=== PATIENT | male | born 1985 | race Caucasian/White ===

== ENCOUNTER 2018-02-12 12:56 | Emergency (ER) | payer OTHER ==
[2018-02-12] MEDS ORDERED: ceFAZolin 1,000 MG VIAL IM STA (13:48)
[2018-02-12] MEDS ORDERED: IBUPROFEN 800 MG TAB PO STA (13:50)
[2018-02-12 14:02] VITALS: BP 140/59; PULSE 62; RESP 18; TEMP 98.1
--- NOTE | 2018-02-12 14:07 | ED ---
Extremity Problem HPI - General Chief complaint: Extremity Problem,Nontraumatic Stated complaint: knee swelling Time Seen by Provider: 02/12/18 13:26 Source: patient Mode of arrival: ambulatory Limitations: no limitations - History of Present Illness Initial comments: This is a 32-year-old male with no past medical history who presents today for chief complaint of worsening erythema of skin overlying the right knee. Patient states that Saturday he noticed a bump on the anterior right knee, he stated it looked like a pimple. By Saturday he noticed some surrounding erythema , and mild swelling of the right knee. Saturday the surrounding erythema was increasing and patient admitted to a burning pain over the skin of the right knee and swelling. Patient presented to the local urgent care, where the bump on the right anterior knee was aspirated, he states that a small amount of pus was obtained from the lesion. Patient was started on Bactrim twice daily for cellulitis of the right knee. A line was drawn around the area of erythema, patient was instructed to monitor the area for spreading of erythema and come to ER if it spread. Patient took 1 dose of the Bactrim at 6 PM, and another this morning. However he noticed that the erythema had gone outside of the lines drawn, and he is still experiencing pain so he presented to the emergency department as directed by urgent care. Patient denies pain in the knee joint with knee flexion or extension, previous surgery of the knee, fever, chills, night sweats, or any other symptoms. Pt vital signs stable upon arrival, afebrile. In addition patient denies any recent fever, chills, shortness of breath, chest pain, back pain, abdominal pain, nausea or vomiting, numbness or tingling, dysuria or hematuria, constipation or diarrhea, headaches or visual changes, or any other complaints. - Related Data Home Medications Medication Instructions Recorded Confirmed Ibuprofen [Motrin Ib] 800 mg PO Q6H PRN 02/12/18 02/12/18 Sulfamethoxazole/Trimethoprim 1 tab PO Q12H 02/12/18 02/12/18 [Bactrim DS 800-160 mg] Previous Rx's Medication Instructions Recorded Cephalexin [Keflex] 500 mg PO Q6HR 7 Days #28 cap 02/12/18 Allergies Allergy/AdvReac Type Severity Reaction Status Date / Time No Known Allergies Allergy Verified 08/01/18 13:05 Review of Systems ROS Statement: Those systems with pertinent positive or pertinent negative responses have been documented in the HPI. ROS Other: All systems not noted in ROS Statement are negative. Constitutional: Denies: fever, chills ENT: Denies: ear pain Respiratory: Denies: cough, dyspnea Cardiovascular: Denies: chest pain, palpitations Gastrointestinal: Denies: abdominal pain, nausea, vomiting, diarrhea, constipation Genitourinary: Denies: urgency, dysuria, frequency, hematuria Musculoskeletal: Denies: as per HPI, joint swelling, arthralgia, myalgia Skin: Reports: as per HPI, rash, change in color. Denies: lesions Neurological: Denies: weakness, numbness, paresthesias, abnormal gait Past Medical History Past Medical History: No Reported History History of Any Multi-Drug Resistant Organisms: None Reported Past Surgical History: No Surgical Hx Reported Past Psychological History: No Psychological Hx Reported Smoking Status: Never smoker Past Alcohol Use History: Occasional Past Drug Use History: None Reported General Exam - General Exam Comments Initial Comments: General: The patient is awake and alert, in no distress, and does not appear acutely ill. Eye: Pupils are equal, round and reactive to light, extra-ocular movements are intact. No nystagmus. There is normal conjunctiva bilaterally. No signs of icterus. Ears, nose, mouth and throat: There are moist mucous membranes and no oral lesions. Neck: The neck is supple, there is no tenderness or JVD. Cardiovascular: There is a regular rate and rhythm. No murmur, rub or gallop is appreciated. Respiratory: Lungs are clear to auscultation, respirations are non-labored, breath sounds are equal. No wheezes, stridor, rales, or rhonchi. Musculoskeletal: There is superficial erythema over the anterior right knee, with extension of erythema slightly outside the lines of pen drawing by urgent care. There is a break in the skin with palpable raised lesion, not fluculant, mild surrounding induration. Mild right knee swelling in comparison the left. Full ROM of the knees equally bilaterally with 5 out of 5 strength, no tenderness to ranging with passive or active range of motion no tenderness. Sensation intact of the lower extremities bilaterally. DP pulses equal bilaterally 2+. Capillary < 2 seconds. Neurological: A&O x 3. CN II-XII intact, There are no obvious motor or sensory deficits. Coordination appears grossly intact. Speech is normal. Skin: Skin is warm and dry and no rashes or lesions are noted. Psychiatric: Cooperative, appropriate mood & affect, normal judgment. Limitations: no limitations Course Vital Signs 02/12/18 02/12/18 12:57 13:58 Temperature 98.0 F 98.1 F Pulse Rate 66 62 Respiratory 20 18 Rate Blood Pressure 143/78 140/59 O2 Sat by Pulse 99 97 Oximetry Medical Decision Making - Medical Decision Making 32y male with no PMH presents for erythema of skin overlying right knee with break in epidermis pt states that the area had a pimple like lesion that began Saturday and it was drained at urgent care yesterday. Upon physical examination there appeared to be superficial erythema without significant soft tissue swelling over the right anterior knee, there is a break in the epidermis. Pt is able to fully passive and active range the right knee without pain. He states the pain feels as though its only involving the skin. Pt is afebrile. At this time I have low suspicion for a septic joint, this appears to be a cellulitis from break in skin. I feel abx given at the urgent care are not therapeutic yet given pt only had 2 doses of Bactrim PO. I discussed the case in detail with Dr. Aragon, at this time. We feel patient would benefit from one-time IM dose of cefazolin andadding Keflex to PO antibiotic regimen for better strep and staph coverage. Patient may take ibuprofen 800 as needed for pain management. At this time the patient is stable for discharge, he was educated on the signs and symptoms of worsening infection instructed to return to emergency department immediately if these arise. Patient discharged in stable condition afebrile. Disposition Clinical Impression: Cellulitis of right knee Disposition: HOME SELF-CARE Condition: Good Instructions: Cellulitis (ED) Additional Instructions: Please use medication as discussed, including continuation of previous prescribed bactrim. Please follow-up with family doctor in the next 2 days. Please return to emergency room if the symptoms increase or worsen or for any other concerns as discussed. Prescriptions: Cephalexin [Keflex] 500 mg PO Q6HR 7 Days #28 cap Is patient prescribed a controlled substance at d/c from ED?: No Referrals: Renato Diaz MD [Primary Care Provider] - 1-2 days Time of Disposition: 14:08
== END 2018-02-12 14:37 | disposition home or self-care (01) ==
LOC: EC 12:56
DX: L03.115 Cellulitis of right lower limb (principal)
CPT/HCPCS: 99283; 96372; J0690

== ENCOUNTER 2018-02-24 02:04 | Emergency (ER) | payer OTHER ==
[2018-02-24] MEDS ORDERED: SODIUM CHLORIDE 0.9% 1,000 ML IV ONE (02:32)
--- NOTE | 2018-02-24 02:37 | ED ---
General Adult HPI - General Source: patient Mode of arrival: ambulatory Limitations: no limitations <Rin Venegas - Last Filed: 02/24/18 04:39> <Alma Rosa Bray - Last Filed: 02/24/18 05:36> - General Chief complaint: Recheck/Abnormal Lab/Rx Stated complaint: Fever,rash Time Seen by Provider: 02/24/18 02:20 - History of Present Illness Initial comments: 32-year-old male patient presents to the emergency department today for evaluation of fever and rash. Patient states that he was treated approximately 12 days ago for a superficial skin infection of the right knee. Patient states he was started on Bactrim, seem to have worsening symptoms so he sought treatment again and was started on Keflex in addition to the Bactrim. Patient states that he took approximate 5 days of the Keflex before his physician told him to stop and then extended the dosing of Bactrim to 14 days. Patient states he has 2 days of Bactrim left. Patient states that yesterday he started to develop a rash and had low-grade fevers. Patient states he feels unwell. Patient states he also began to have diarrhea tonight. States the diarrhea is watery and he is having generalized abdominal cramping. Patient denies any cough, congestion, sore throat, headache, or joint pain. States that at this time the infection to his right knee appears to be improved. Denies any recent travel or sick contacts. Patient denies any recent rash, shortness breath, chest pain, back pain, numbness, tingling, dizziness, weakness, hematuria, dysuria, urinary urgency, urinary frequency, headache, visual changes, or any other complaints. (Rin Venegas) - Related Data Home Medications Medication Instructions Recorded Confirmed Ibuprofen [Motrin Ib] 800 mg PO Q6H PRN 02/12/18 02/12/18 Sulfamethoxazole/Trimethoprim 1 tab PO Q12H 02/12/18 02/12/18 [Bactrim DS 800-160 mg] Previous Rx's Medication Instructions Recorded Cephalexin [Keflex] 500 mg PO Q6HR 7 Days #28 cap 02/12/18 Allergies Allergy/AdvReac Type Severity Reaction Status Date / Time No Known Allergies Allergy Verified 02/24/18 02:11 Review of Systems ROS Other: All systems not noted in ROS Statement are negative. <TheoRin M - Last Filed: 02/24/18 04:39> ROS Other: All systems not noted in ROS Statement are negative. <Alma Rosa Bray Telma - Last Filed: 02/24/18 05:36> ROS Statement: Those systems with pertinent positive or pertinent negative responses have been documented in the HPI. Past Medical History Past Medical History: No Reported History Additional Past Medical History / Comment(s): MRSA right knee History of Any Multi-Drug Resistant Organisms: MRSA Date of last positivie culture/infection: 02/12/18 MDRO Source:: skin/right knee Past Surgical History: No Surgical Hx Reported Past Psychological History: No Psychological Hx Reported Smoking Status: Never smoker Past Alcohol Use History: Occasional Past Drug Use History: None Reported <Rin Venegas Ilda - Last Filed: 02/24/18 04:39> General Exam Limitations: no limitations General appearance: alert, in no apparent distress, other (This is a well- developed, well-nourished adult male patient in no acute distress. Vital signs upon presentation are temperature 99.4F, pulse 97, respirations 18, blood pressure 126/80, pulse ox 95% on room air.) Eye exam: Present: normal appearance, PERRL, EOMI. Absent: scleral icterus, conjunctival injection, periorbital swelling ENT exam: Present: normal exam, normal oropharynx, mucous membranes moist Respiratory exam: Present: normal lung sounds bilaterally. Absent: respiratory distress, wheezes, rales, rhonchi, stridor Cardiovascular Exam: Present: regular rate, normal rhythm, normal heart sounds. Absent: systolic murmur, diastolic murmur, rubs, gallop, clicks GI/Abdominal exam: Present: soft, normal bowel sounds. Absent: distended, tenderness, guarding, rebound, rigid Neurological exam: Present: alert, oriented X3, CN II-XII intact Psychiatric exam: Present: normal affect, normal mood Skin exam: Present: warm, dry, intact, normal color, rash (Generalized erythematous rash, small lesions, non petechial, nonvesicular. No pustules or drainage. ) <Rin Venegas M - Last Filed: 02/24/18 04:39> Vital Signs 02/24/18 02:07 Temperature 99.4 F Pulse Rate 97 Respiratory 18 Rate Blood Pressure 126/80 O2 Sat by Pulse 95 Oximetry Medical Decision Making - Lab Data Result diagrams: 02/24/18 02:50 02/24/18 02:50 <Rin Venegas - Last Filed: 02/24/18 04:39> - Lab Data Result diagrams: 02/24/18 02:50 02/24/18 02:50 <Alma Rosa Bray - Last Filed: 02/24/18 05:36> - Medical Decision Making Patient care was signed out to me by Renu Venegas [employer] patient has been not Bactrim for 12 days for a lower extremity skin infection. He has developed some diarrhea and a rash. Rash is likely secondary to a drug eruption. There is concern that diarrhea may a bloody, stool occult blood was negative. C. diff was negative. Results were discussed with the patient who is eager for discharge home. Patient was advised to discontinue the use of Bactrim and follow up with his PCP for reevaluation. All questions pertaining care were answered the best my ability patient discharged home in stable condition. (Alma Rosa Bray) - Lab Data Lab Results 02/24/18 02/24/18 02/24/18 Range/Units 02:50 02:50 02:50 WBC 8.5 (3.8-10.6) k/uL RBC 4.80 (4.30-5.90) m/uL Hgb 14.7 (13.0-17.5) gm/dL Hct 42.4 (39.0-53.0) % MCV 88.3 (80.0-100.0) fL MCH 30.6 (25.0-35.0) pg MCHC 34.6 (31.0-37.0) g/dL RDW 12.8 (11.5-15.5) % Plt Count 196 (150-450) k/uL Neutrophils % 81 % Lymphocytes % 11 % Monocytes % 4 % Eosinophils % 2 % Basophils % 0 % Neutrophils # 6.9 (1.3-7.7) k/uL Lymphocytes # 1.0 (1.0-4.8) k/uL Monocytes # 0.4 (0-1.0) k/uL Eosinophils # 0.1 (0-0.7) k/uL Basophils # 0.0 (0-0.2) k/uL Sodium 138 (137-145) mmol/L Potassium 4.9 (3.5-5.1) mmol/L Chloride 104 (98-107) mmol/L Carbon Dioxide 23 (22-30) mmol/L Anion Gap 11 mmol/L BUN 14 (9-20) mg/dL Creatinine 1.00 (0.66-1.25) mg/dL Est GFR (CKD-EPI)AfAm >90 (>60 ml/min/1.73 sqM) Est GFR (CKD-EPI)NonAf >90 (>60 ml/min/1.73 sqM) Glucose 107 H (74-99) mg/dL Plasma Lactic Acid Trevor 1.8 (0.7-2.0) mmol/L Calcium 9.6 (8.4-10.2) mg/dL Total Bilirubin 0.4 (0.2-1.3) mg/dL AST 31 (17-59) U/L ALT 61 (21-72) U/L Alkaline Phosphatase 80 (38-126) U/L Total Protein 7.6 (6.3-8.2) g/dL Albumin 4.8 (3.5-5.0) g/dL Urine Color Urine Appearance (Clear) Urine pH (5.0-8.0) Ur Specific Atkinson (1.001-1.035) Urine Protein (Negative) Urine Glucose (UA) (Negative) Urine Ketones (Negative) Urine Blood (Negative) Urine Nitrite (Negative) Urine Bilirubin (Negative) Urine Urobilinogen (<2.0) mg/dL Ur Leukocyte Esterase (Negative) Stool Occult Blood (Negative) C. difficile (EIA) Intrp (Negative) 02/24/18 02/24/18 02/24/18 Range/Units 04:00 04:00 04:00 WBC (3.8-10.6) k/uL RBC (4.30-5.90) m/uL Hgb (13.0-17.5) gm/dL Hct (39.0-53.0) % MCV (80.0-100.0) fL MCH (25.0-35.0) pg MCHC (31.0-37.0) g/dL RDW (11.5-15.5) % Plt Count (150-450) k/uL Neutrophils % % Lymphocytes % % Monocytes % % Eosinophils % % Basophils % % Neutrophils # (1.3-7.7) k/uL Lymphocytes # (1.0-4.8) k/uL Monocytes # (0-1.0) k/uL Eosinophils # (0-0.7) k/uL Basophils # (0-0.2) k/uL Sodium (137-145) mmol/L Potassium (3.5-5.1) mmol/L Chloride (98-107) mmol/L Carbon Dioxide (22-30) mmol/L Anion Gap mmol/L BUN (9-20) mg/dL Creatinine (0.66-1.25) mg/dL Est GFR (CKD-EPI)AfAm (>60 ml/min/1.73 sqM) Est GFR (CKD-EPI)NonAf (>60 ml/min/1.73 sqM) Glucose (74-99) mg/dL Plasma Lactic Acid Trevor (0.7-2.0) mmol/L Calcium (8.4-10.2) mg/dL Total Bilirubin (0.2-1.3) mg/dL AST (17-59) U/L ALT (21-72) U/L Alkaline Phosphatase (38-126) U/L Total Protein (6.3-8.2) g/dL Albumin (3.5-5.0) g/dL Urine Color Yellow Urine Appearance Clear (Clear) Urine pH 5.0 (5.0-8.0) Ur Specific Atkinson 1.015 (1.001-1.035) Urine Protein Negative (Negative) Urine Glucose (UA) Negative (Negative) Urine Ketones Negative (Negative) Urine Blood Negative (Negative) Urine Nitrite Negative (Negative) Urine Bilirubin Negative (Negative) Urine Urobilinogen <2.0 (<2.0) mg/dL Ur Leukocyte Esterase Negative (Negative) Stool Occult Blood Negative (Negative) C. difficile (EIA) Intrp Negative (Negative) Disposition Is patient prescribed a controlled substance at d/c from ED?: No <Rin Venegas - Last Filed: 02/24/18 04:39> Is patient prescribed a controlled substance at d/c from ED?: No Time of Disposition: 05:35 <Alma Rosa Bray - Last Filed: 02/24/18 05:36> Clinical Impression: Drug rash, Diarrhea Disposition: HOME SELF-CARE Condition: Good Instructions: Acute Diarrhea (ED), Acute Rash (ED) Additional Instructions: Increase fluids. Stop taking the Bactrim. Follow-up with your primary care physician for recheck in 1-2 days. Return here immediately for any new, worsening, or concerning symptoms. Referrals: Renato Diaz MD [Primary Care Provider] - 1-2 days
[2018-02-24 03:15] LABS: Basophils % (A) 0 %; Eosinophils # (A) 0.1 k/uL (0-0.7); Eosinophils % (A) 2 %; HCT 42.4 % (39.0-53.0); HGB 14.7 gm/dL (13.0-17.5); Lymphocytes % (A) 11 %; MCH 30.6 pg (25.0-35.0); MCHC 34.6 g/dL (31.0-37.0); MCV 88.3 fL (80.0-100.0); Mean Platelet Volume 7.1; Monocytes # (A) 0.4 k/uL (0-1.0); Monocytes % (A) 4 %; Neutrophils # (A) 6.9 k/uL (1.3-7.7); Neutrophils % (A) 81 %; Platelet Count 196 k/uL (150-450); RDW 12.8 % (11.5-15.5); WBC 8.5 k/uL (3.8-10.6)
[2018-02-24 03:31] LABS: ALT 61 U/L (21-72); AST 31 U/L (17-59); Albumin 4.8 g/dL (3.5-5.0); Alkaline Phosphatase 80 U/L (38-126); Anion Gap 11 mmol/L; Blood Urea Nitrogen 14 mg/dL (9-20); Calcium 9.6 mg/dL (8.4-10.2); Carbon Dioxide 23 mmol/L (22-30); Chloride 104 mmol/L (98-107); Glucose 107 mg/dL (74-99); Potassium 4.9 mmol/L (3.5-5.1); Sodium 138 mmol/L (137-145); Total Bilirubin 0.4 mg/dL (0.2-1.3); Total Protein 7.6 g/dL (6.3-8.2)
[2018-02-24 04:31] LABS: Appearance,Urine Clear (Clear); Bilirubin,Urine Negative (Negative); Blood,Urine Negative (Negative); Color,Urine Yellow; Glucose,Urine (UA) Negative (Negative); Ketones,Urine Negative (Negative); Leukocyte Esterase,Urine Negative (Negative); Nitrite,Urine Negative (Negative); Protein,Urine Negative (Negative); Specific Gravity,Urine 1.015 (1.001-1.035); Urobilinogen,Urine <2.0 mg/dL (<2.0)
[2018-02-24 06:09] VITALS: BP 123/58; PULSE 72; RESP 20; TEMP 98.7
== END 2018-02-24 06:09 | disposition home or self-care (01) ==
LOC: EC 02:04
DX: L27.0 Generalized skin eruption due to drugs and medicaments taken internally (principal); R19.7 Diarrhea, unspecified; R10.84 Generalized abdominal pain; R50.9 Fever, unspecified; T37.0X5A Adverse effect of sulfonamides, initial encounter; L08.9 Local infection of the skin and subcutaneous tissue, unspecified; Z86.14 Personal history of Methicillin resistant Staphylococcus aureus infection
CPT/HCPCS: 36415; 80053; 81003; 82272; 83605; 85025; 87040; 87324; 96360; 96361; 99283

== ENCOUNTER 2018-12-10 15:17 | Emergency (ER) | payer OTHER ==
[2018-12-10 15:33] VITALS: BP 143/64; PULSE 66; RESP 18; TEMP 98
[2018-12-10 16:23] LABS: Basophils % (A) 1 %; Eosinophils # (A) 0.1 k/uL (0-0.7); Eosinophils % (A) 2 %; HCT 44.9 % (39.0-53.0); Lymphocytes # (A) 1.1 k/uL (1.0-4.8); Lymphocytes % (A) 22 %; MCH 30.1 pg (25.0-35.0); MCHC 33.5 g/dL (31.0-37.0); MCV 89.9 fL (80.0-100.0); Monocytes # (A) 0.3 k/uL (0-1.0); Monocytes % (A) 6 %; Neutrophils # (A) 3.6 k/uL (1.3-7.7); Neutrophils % (A) 68 %; Platelet Count 197 k/uL (150-450); RDW 12.9 % (11.5-15.5); WBC 5.2 k/uL (3.8-10.6)
[2018-12-10 16:32] LABS: Anion Gap 11 mmol/L; Blood Urea Nitrogen 14 mg/dL (9-20); Calcium 10.4 mg/dL (8.4-10.2); Carbon Dioxide 28 mmol/L (22-30); Chloride 103 mmol/L (98-107); Glucose 103 mg/dL (74-99); Potassium 4.1 mmol/L (3.5-5.1); Sodium 142 mmol/L (137-145)
[2018-12-10] MEDS ORDERED: MECLIZINE 25 MG TAB PO STA (16:56)
--- NOTE | 2018-12-10 17:00 | ED ---
General Adult HPI - General Chief complaint: Dizziness Stated complaint: Dizzy Time Seen by Provider: 12/10/18 15:30 Source: patient, RN notes reviewed Mode of arrival: ambulatory Limitations: no limitations - History of Present Illness Initial comments: This is a 32-year-old male presents emergency Department complaining of dizziness. Patient states it started about 1:00 today and anytime he moves his head the dizziness gets worse per patient states she's also little nauseated with the dizziness. Patient also has noted that if he stays still and looks at one point the dizziness is not as bad per patient denies headache patient denies any numbness weakness. Patient denies any visual disturbance. Patient denies any chest pain palpitations difficulty breathing shortest breath per patient denies any recent fever chills or cough per patient states he has had 2 previous episodes the last few weeks of very similar symptoms but both times they resolved. Patient denies any tinnitus or any decreased or change in hearing. Patient denies any recent upper respiratory infection. Patient denies any vomiting or diarrhea. Patient denies any abdominal pain. - Related Data Previous Rx's Medication Instructions Recorded Meclizine [Antivert] 25 mg PO TID #20 tab 12/10/18 Allergies Allergy/AdvReac Type Severity Reaction Status Date / Time No Known Allergies Allergy Verified 12/10/18 17:23 Review of Systems ROS Statement: Those systems with pertinent positive or pertinent negative responses have been documented in the HPI. ROS Other: All systems not noted in ROS Statement are negative. Past Medical History Past Medical History: No Reported History Additional Past Medical History / Comment(s): MRSA right knee History of Any Multi-Drug Resistant Organisms: MRSA Date of last positivie culture/infection: 02/12/18 MDRO Source:: skin/right knee Past Surgical History: No Surgical Hx Reported Past Psychological History: No Psychological Hx Reported Smoking Status: Never smoker Past Alcohol Use History: Occasional Past Drug Use History: None Reported General Exam - General Exam Comments Initial Comments: GENERAL: Patient is well-developed and well-nourished. Patient is nontoxic and well- hydrated and is in mild distress. ENT: Neck is soft and supple. No significant lymphadenopathy is noted. Oropharynx is clear. Moist mucous membranes. Neck has full range of motion without eliciting any pain. EYES: The sclera were anicteric and conjunctiva were pink and moist. Extraocular movements were intact and pupils were equal round and reactive to light. Eyelids were unremarkable. PULMONARY: Unlabored respirations. Good breath sounds bilaterally. No audible rales rhonchi or wheezing was noted. CARDIOVASCULAR: There is a regular rate and rhythm without any murmurs gallops or rubs. ABDOMEN: Soft and nontender with normal bowel sounds. No palpable organomegaly was noted. There is no palpable pulsatile mass. SKIN: Skin is clear with no lesions or rashes and otherwise unremarkable. NEUROLOGIC: Patient is alert and oriented x3. Cranial nerves II through XII are grossly intact. Motor and sensory are also intact. Normal speech, volume and content. Symmetrical smile. Cerebellar exam grossly intact. MUSCULOSKELETAL: Normal extremities with adequate strength and full range of motion. LYMPHATICS: No significant lymphadenopathy is noted PSYCHIATRIC: Normal psychiatric evaluation. Limitations: no limitations Course Vital Signs 12/10/18 15:30 Temperature 98.0 F Pulse Rate 66 Respiratory 18 Rate Blood Pressure 143/64 O2 Sat by Pulse 99 Oximetry Medical Decision Making - Medical Decision Making EKG shows sinus tachycardia at 106 bpm SD interval 240 QRS is 80 QT interval 350 QTC is 464 per patient's EKG shows no ST segment elevation or depression. Computed tomography scan showed no acute abnormality. Patient got Antivert while in the emergency department did feel slightly better. - Lab Data Result diagrams: 12/10/18 Unknown 12/10/18 Unknown Lab Results 12/10/18 12/10/18 Range/Units Unknown Unknown WBC 5.2 (3.8-10.6) k/uL RBC 5.00 (4.30-5.90) m/uL Hgb 15.0 (13.0-17.5) gm/dL Hct 44.9 (39.0-53.0) % MCV 89.9 (80.0-100.0) fL MCH 30.1 (25.0-35.0) pg MCHC 33.5 (31.0-37.0) g/dL RDW 12.9 (11.5-15.5) % Plt Count 197 (150-450) k/uL Neutrophils % 68 % Lymphocytes % 22 % Monocytes % 6 % Eosinophils % 2 % Basophils % 1 % Neutrophils # 3.6 (1.3-7.7) k/uL Lymphocytes # 1.1 (1.0-4.8) k/uL Monocytes # 0.3 (0-1.0) k/uL Eosinophils # 0.1 (0-0.7) k/uL Basophils # 0.0 (0-0.2) k/uL Sodium 142 (137-145) mmol/L Potassium 4.1 (3.5-5.1) mmol/L Chloride 103 (98-107) mmol/L Carbon Dioxide 28 (22-30) mmol/L Anion Gap 11 mmol/L BUN 14 (9-20) mg/dL Creatinine 0.90 (0.66-1.25) mg/dL Est GFR (CKD-EPI)AfAm >90 (>60 ml/min/1.73 sqM) Est GFR (CKD-EPI)NonAf >90 (>60 ml/min/1.73 sqM) Glucose 103 H (74-99) mg/dL Calcium 10.4 H (8.4-10.2) mg/dL Disposition Clinical Impression: Vertigo Disposition: HOME SELF-CARE Condition: Good Instructions (If sedation given, give patient instructions): Vertigo (ED) Prescriptions: Meclizine [Antivert] 25 mg PO TID #20 tab Is patient prescribed a controlled substance at d/c from ED?: No Referrals: Renato Diaz MD [Primary Care Provider] - 1-2 days Time of Disposition: 18:34
--- NOTE | 2018-12-10 17:57 | CT ---
EXAMINATION: CT brain wo con DATE AND TIME: 12/10/2018 5:36 PM CLINICAL INDICATION: PHH; Pain TECHNIQUE: Standard departmental protocol.; 1090.4; COMPARISON: None. FINDINGS: The calvarium is intact. There is no intracranial hemorrhage. There is no intracranial mass or mass effect. No definite new intra-axial or extra-axial attenuation defect. The paranasal sinuses, middle ear cavities, and mastoid sinus air cells are clear. The orbits are unremarkable. IMPRESSION: NO ACUTE PROCESS.
== END 2018-12-10 19:12 | disposition home or self-care (01) ==
LOC: EC 15:17
DX: R42 Dizziness and giddiness (principal); R11.0 Nausea; R00.0 Tachycardia, unspecified; Z86.14 Personal history of Methicillin resistant Staphylococcus aureus infection
CPT/HCPCS: 36415; 70450; 80048; 85025; 93005; 99284

== ENCOUNTER → 2019-08-14 | Outpatient (CLI) | payer OTHER ==
--- NOTE | 2019-08-16 21:56 | CT ---
EXAMINATION TYPE: CT soft tissue neck w con DATE OF EXAM: 08/14/2019 COMPARISON: None HISTORY: 33-year-old male pain in throat X 5 months TECHNIQUE: Contiguous axial scanning of the soft tissues of the neck performed with IV Contrast, noreen ent injected with 100 mL of Isovue 300. Coronal/sagittal reconstructions performed. CT DLP: 543 mGycm Automated exposure control for dose reduction was used. FINDINGS: Visualized intracranial structures, orbits and globes, paranasal sinuses, and mastoid air cells appea r clear. Nasopharynx appears clear. Mild bilateral tubal tonsillar hypertrophy in the upper oropharynx. Oropharynx otherwise clear. The epiglottis and prevertebral soft tissues appear within normal limits. Glottic and subglottic structures as well as the tracheal column and visualized upper lungs are clear . Thyroid gland and submandibular glands are satisfactory. Parotid glands are mildly atrophic. Borderline sized upper cervical lymph nodes on both sides of the neck measuring up to 1.3 cm short ax is on the left and 1.1 cm short axis on the right. Additional scattered lymph nodes are present on norma th sides of the neck. Bones: No osseous destructive process. IMPRESSION: 1. BORDERLINE SIZED LYMPH NODES ON BOTH SIDES OF THE UPPER NECK MEASURING UP TO 1.3 CM SHORT AXIS, LI NGOZI REACTIVE/POST INFLAMMATORY. THESE CAN BE FOLLOWED CLINICALLY. IF ANY ENLARGEMENT IS NOTED, THE A MADISON CAN BE REIMAGED WITH ULTRASOUND. 2. INCIDENTAL MILD PAROTID GLAND ATROPHY.
== END | disposition home or self-care (01) ==
LOC: RADCTMAIN 16:43
PROVIDERS: ATTEND Otolaryngology
DX: J02.9 Acute pharyngitis, unspecified (principal)
CPT/HCPCS: 70491; Q9967

== ENCOUNTER 2020-09-26 02:21 | Observation (INO) | payer OTHER ==
--- NOTE | 2020-09-26 02:58 | ED ---
Chest Pain HPI - General Chief Complaint: Chest Pain Stated Complaint: Chest pain Time Seen by Provider: 09/26/20 02:42 Source: patient Mode of arrival: wheelchair Limitations: no limitations - History of Present Illness Initial Comments: This patient is a 34-year-old man who presents to be evaluated for chest pain. The patient states that he woke up and it felt like he was having heartburn to just to the left of his sternum in the mid chest. He states that he tried drinking some water but it didn't change the pain. He states that he didn't notice any acid taste in his mouth and therefore he felt he should be evaluated here. He was not having any radiation of the pain. He has not noted worsening or relieving factors. No anginal symptoms. MD Complaint: chest pain Onset/Timin -: hour(s) Onset: awoke with symptoms Pain Location: left chest Pain Radiation: none Severity: mild Quality: other (Like heartburn) Consistency: constant Improves With: nothing Worsens With: nothing Treatments Prior to Arrival: none - Related Data Home Medications Medication Instructions Recorded Confirmed Aspirin/Sod Bicarb/Citric Acid 1 tab PO DAILY PRN 09/26/20 09/26/20 [Juanita-Dover Original Tab Eff] Previous Rx's Medication Instructions Recorded Aspirin 81 mg PO DAILY #30 chew 09/27/20 Atorvastatin Calcium [Lipitor] 40 mg PO HS #90 tablet 09/27/20 Clopidogrel [Plavix] 75 mg PO DAILY #30 tab 09/27/20 Metoprolol Tartrate [Lopressor] 12.5 mg PO DAILY #30 tab 09/27/20 Nitroglycerin Sl Tabs [Nitrostat] 0.4 mg SUBLINGUAL Q5M PRN #20 tab 09/27/20 Allergies Allergy/AdvReac Type Severity Reaction Status Date / Time No Known Allergies Allergy Verified 09/26/20 06:57 Review of Systems ROS Statement: Those systems with pertinent positive or pertinent negative responses have been documented in the HPI. ROS Other: All systems not noted in ROS Statement are negative. Constitutional: Denies: fever Respiratory: Denies: cough, dyspnea Cardiovascular: Reports: as per HPI, chest pain. Denies: palpitations, orthopnea, edema, syncope Gastrointestinal: Denies: abdominal pain, nausea, vomiting Genitourinary: Denies: dysuria Musculoskeletal: Denies: back pain Skin: Denies: rash Neurological: Denies: headache, weakness, numbness EKG Findings - EKG Results: EKG: interpreted by RUSSEL GORDON, sinus rhythm (Rate 61 bpm), normal axis, normal QRS, normal ST/T, no acute changes Past Medical History Past Medical History: No Reported History Additional Past Medical History / Comment(s): MRSA right knee History of Any Multi-Drug Resistant Organisms: MRSA Date of last positivie culture/infection: 02/12/18 MDRO Source:: skin/right knee Past Surgical History: No Surgical Hx Reported Past Psychological History: No Psychological Hx Reported Smoking Status: Never smoker Past Alcohol Use History: Occasional Past Drug Use History: None Reported - Past Family History Father Family Medical History: No Reported History Additional Family Medical History / Comment(s): Father is healthy Mother Family Medical History: No Reported History Additional Family Medical History / Comment(s): Mother is healthy. Pt's maternal grandfather of a [place] at the age of 40 yrs. General Exam Limitations: no limitations General appearance: alert, in no apparent distress Head exam: Present: atraumatic, normocephalic Eye exam: Present: normal appearance. Absent: scleral icterus, conjunctival injection ENT exam: Present: normal oropharynx Neck exam: Present: normal inspection Respiratory exam: Present: normal lung sounds bilaterally. Absent: respiratory distress, wheezes, rales, rhonchi, stridor, chest wall tenderness, accessory muscle use Cardiovascular Exam: Present: regular rate, normal rhythm, normal heart sounds. Absent: systolic murmur, diastolic murmur, rubs, gallop GI/Abdominal exam: Present: soft. Absent: distended, tenderness, guarding, rebound, rigid, mass Extremities exam: Present: normal inspection, normal capillary refill. Absent: pedal edema, calf tenderness Back exam: Present: normal inspection. Absent: CVA tenderness (R), CVA tenderness (L) Neurological exam: Present: alert Skin exam: Present: warm, dry, intact, normal color. Absent: rash Course Vital Signs 09/26/20 09/26/20 09/26/20 02:24 06:00 07:22 Temperature 97.8 F 98.1 F Pulse Rate 67 58 L 58 L Respiratory 18 18 16 Rate Blood Pressure 154/88 126/82 129/81 O2 Sat by Pulse 100 98 100 Oximetry 09/26/20 09/26/20 09/26/20 10:38 11:14 11:22 Temperature 98.3 F 98.3 F Pulse Rate 67 71 82 Respiratory 16 16 18 Rate Blood Pressure 137/86 162/89 162/89 O2 Sat by Pulse 100 100 100 Oximetry - Reevaluation(s) Reevaluation #1: 09/26/20 07:[address] Horta. Cardiology will see the patient first thing this morning Chest Pain [facility] Patient is a 34-year-old man resenting with episode of chest pain, the symptoms have improved with treatment here. Patient does have minimal elevation of troponin. His ECG is not frankly ischemic, and the case discussed with cardiology and they will see the patient. Disposition Clinical Impression: Acute coronary syndrome Disposition: ADMITTED IP TO THIS HOSP Condition: Fair
[2020-09-26] MEDS ORDERED: MAG HYDROX/AL HYDROX/SIMETH 30 ML, HYOSCYAMINE ELIXIR 10 ML, LIDOCAINE VISCOUS 2% 10 ML PO STA ×3 (03:05)
--- NOTE | 2020-09-26 03:07 | XR ---
EXAM: XR Chest, 2 Views CLINICAL HISTORY: Chest pain. TECHNIQUE: Frontal and lateral views of the chest. COMPARISON: No previous studies. FINDINGS: Lungs: The lungs are well aerated. No consolidative change or pleural effusion. Pleural space: See above. Heart: Cardiomediastinal silhouette is unremarkable. Mediastinum: See above. Bones/joints: Osteopenia. IMPRESSION: 1. Osteopenia. 2. No active disease.
[2020-09-26 03:08] LABS: Partial Thromboplastin Time 24.3 sec (22.0-30.0); Prothrombin Time 10.4 sec (9.0-12.0)
[2020-09-26 03:12] LABS: ALT 72 U/L (4-49); AST 56 U/L (17-59); African American GFR (CKD) >90 (>60 ml/min/1.73 sqM); Albumin 4.8 g/dL (3.5-5.0); Alkaline Phosphatase 94 U/L (38-126); Anion Gap 6 mmol/L; Blood Urea Nitrogen 19 mg/dL (9-20); Calcium 9.3 mg/dL (8.4-10.2); Carbon Dioxide 29 mmol/L (22-30); Chloride 103 mmol/L (98-107); Glucose 106 mg/dL (74-99); Magnesium 2.1 mg/dL (1.6-2.3); Non-African American GFR(CKD) >90 (>60 ml/min/1.73 sqM); Potassium 4.5 mmol/L (3.5-5.1); Sodium 138 mmol/L (137-145); Total Bilirubin 0.6 mg/dL (0.2-1.3); Total Protein 7.7 g/dL (6.3-8.2)
[2020-09-26 03:28] LABS: HCT 43.7 % (39.0-53.0); MCHC 34.3 g/dL (31.0-37.0); MCV 90.6 fL (80.0-100.0); Mean Platelet Volume 8.5; Platelet Count 171 k/uL (150-450); RBC 4.82 m/uL (4.30-5.90); RDW 12.6 % (11.5-15.5); WBC 3.8 k/uL (3.8-10.6)
[2020-09-26] MEDS ORDERED: ASPIRIN 81 MG PO STA (03:37)
[2020-09-26] MEDS ORDERED: NITROGLYCERIN SL TABS 0.4 MG TAB SUBLINGUAL STA (03:37)
[2020-09-26] MEDS ORDERED: HEPARIN SODIUM,PORCINE 5,000 UNIT/ML 1 ML VIAL IV PRN (04:04)
[2020-09-26] MEDS ORDERED: HEPARIN SODIUM,PORCINE 5,000 UNIT/ML 1 ML VIAL IV ONE (04:04)
[2020-09-26] MEDS ORDERED: MORPHINE SULFATE 4 MG/ML SYRINGE IV STA (04:05)
[2020-09-26] MEDS ORDERED: NITROGLYCERIN SL TABS 0.4 MG TAB SUBLINGUAL PRN ×2 (04:06→11:04)
[2020-09-26] MEDS ORDERED: HEPARIN SOD,PORK IN 0.45% NACL 25,000 UNIT in 0.45% NACL 1 250ML.BAG IV SCH (04:15)
[2020-09-26 04:32] LABS: Band Neutrophils % 3 %; Basophils # (M) 0.08 k/uL (0-0.2); Eosinophils # (M) 0.04 k/uL (0-0.7); Lymphocytes # (M) 2.05 k/uL (1.0-4.8); Monocytes # (M) 0.72 k/uL (0-1.0); Neutrophils % (M) 21 %; Nucleated Red Blood Cells 0 /100 WBC (0-0); Total Cells Counted 100
[2020-09-26] MEDS ORDERED: ALPRAZolam 0.25 MG TAB PO PRN ×2 (08:37→11:04)
[2020-09-26] MEDS: FAMOTIDINE 20 MG/2 ML VIAL IV SCH ×2 (09:20→20:05)
--- NOTE | 2020-09-26 09:59 | P.HPIM ---
History of Present Illness This is a pleasant 54 years old male with no significant past medical history. Was admitted yesterday for heartburn and chest pain, patient states he workup with chest pain radiating to the left shoulder, which woke him up at 1 am , felt like pressure or burning as per pt, pt itself was not that sever it was only 3- 4/10 in severity but the location of pain in left upper chest radiating to left shoulder and the fact it woke him up in the middle of night which made pt gets worried and decide to come to ED pt denies present, no abdominal or urinary complaints. No headache or nausea vomiting. No fever. Patient states he never smokes, no illicit drugs and he drinks alcohol occasionally However he states that his current father from his mother's side was not at age of 40 from heart attack Vitals are stable except for mild bradycardia with heart rate of 58. Left showing unremarkable CBC, INR, BMP and liver enzymes. Troponin is elevated 0.04 and 0.22. Coronary varus not detected EKG: Normal sinus rhythm at [address]-T changes and QTC 440. Chest x-ray: No acute process. In the emergency room patient was started on heparin drip and aspirin cartilage team were consulted Review of Systems CONSTITUTIONAL: No fever, no malaise, no fatigue. HEENT: No recent visual problems or hearing problems. Denied any sore throat. CARDIOVASCULAR: No orthopnea, PND, no palpitations, no syncope. PULMONARY: No shortness of breath, no cough, no hemoptysis. GASTROINTESTINAL: No diarrhea, no nausea, no vomiting, no abdominal pain. Normoactive bowel sounds. NEUROLOGICAL: No headaches, no weakness, no numbness. HEMATOLOGICAL: Denies any bleeding or petechiae. GENITOURINARY: Denies any burning micturition, frequency, or urgency. MUSCULOSKELETAL/RHEUMATOLOGICAL: Denies any joint pain, swelling, or any muscle pain. ENDOCRINE: Denies any polyuria or polydipsia. Past Medical History Past Medical History: No Reported History Additional Past Medical History / Comment(s): MRSA right knee History of Any Multi-Drug Resistant Organisms: MRSA Date of last positivie culture/infection: 02/12/18 MDRO Source:: skin/right knee Past Surgical History: No Surgical Hx Reported Past Psychological History: No Psychological Hx Reported Smoking Status: Never smoker Past Alcohol Use History: Occasional Past Drug Use History: None Reported Medications and Allergies Home Medications Medication Instructions Recorded Confirmed Type Aspirin/Sod Bicarb/Citric Acid 1 tab PO DAILY PRN 09/26/20 09/26/20 History [Timoteo Original Tab Eff] Allergies Allergy/AdvReac Type Severity Reaction Status Date / Time No Known Allergies Allergy Verified 09/26/20 06:57 Physical Exam Vitals: Vital Signs Temp Pulse Resp BP Pulse Ox 09/26/20 07:22 98.1 F 58 L 16 129/81 100 09/26/20 06:00 58 L 18 126/82 98 09/26/20 02:24 97.8 F 67 18 154/88 100 Intake and Output 09/25/20 09/26/20 09/26/20 22:59 06:59 14:59 Other: Weight 90.718 kg GENERAL: The patient is alert and oriented x3, not in any acute distress. Well developed, well nourished. HEENT: Pupils are round and equally reacting to light. EOMI. No scleral icterus. No conjunctival pallor. Normocephalic, atraumatic. No pharyngeal erythema. No thyromegaly. CARDIOVASCULAR: S1 and S2 present. No murmurs, rubs, or gallops. PULMONARY: Chest is clear to auscultation, no wheezing or crackles. ABDOMEN: Soft, nontender, nondistended, normoactive bowel sounds. No palpable organomegaly. MUSCULOSKELETAL: No joint swelling or deformity. EXTREMITIES: No cyanosis, clubbing, or pedal edema. NEUROLOGICAL: Gross neurological examination did not reveal any focal deficits. SKIN: No rashes. No petechiae Results CBC & Chem 7: 09/26/20 02:49 09/26/20 02:49 Labs: Abnormal Lab Results - Last 24 Hours (Table) 09/26/20 09/26/20 09/26/20 Range/Units 02:49 02:49 02:49 Neutrophils # (Manual) 0.90 L (1.3-7.7) k/uL Glucose 106 H (74-99) mg/dL ALT 72 H (4-49) U/L Troponin I 0.047 H* (0.000-0.034) ng/mL 09/26/20 Range/Units 05:11 Neutrophils # (Manual) (1.3-7.7) k/uL Glucose (74-99) mg/dL ALT (4-49) U/L Troponin I 0.228 H* (0.000-0.034) ng/mL Assessment and Plan Assessment: Acute non-STEMI Mild asymptomatic bradycardia family history of premature cardiac disease Plan: This is a pleasant 34 years old male who presents with non-STEMI. Continue with aspirin and heparin drip. Follow-up with cardiology team recommendation Labs and medication were reviewed.. Continue same treatment. Continue with symptomatic treatment. Resume home medication. Monitor lytes and vitals. DVT and GI prophylaxis. Further recommendations depends on the clinical course of the patient DVT prophylaxis: heparin GI Prophylaxis: Pepcid Prognosis is guarded in s
[2020-09-26 10:43] VITALS: TEMP 98.3
[2020-09-26] MEDS ORDERED: ATORVASTATIN 80 MG TAB PO STA (11:04)
[2020-09-26] MEDS ORDERED: ASPIRIN 325 MG TAB PO STA (11:04)
[2020-09-26] MEDS ORDERED: SODIUM CHLORIDE 0.9% 1,000 ML in EMPTY BAG 1 BAG IV ONE (11:04)
[2020-09-26] MEDS ORDERED: ALPRAZolam 0.5 MG TAB PO PRN (11:04)
[2020-09-26] MEDS ORDERED: LIDOCAINE 1% INJ 10MG/ML (20 ML MDV) ONE (11:16)
[2020-09-26] MEDS ORDERED: VERAPAMIL 2.5 MG/ML 2 ML AMP ONE (11:16)
[2020-09-26] MEDS ORDERED: fentaNYL (PF) 50 MCG/ML 2 ML AMP ONE (11:47)
--- NOTE | 2020-09-26 11:47 | P.CRDCN ---
History of Present Illness Consult date: 09/26/20 History of present illness: HISTORY OF PRESENT ILLNESS: This is a 34-year-old male with no significant past medical history. 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 We have been asked to see the patient in consultation for abnormal troponins. Patient examined at the bedside in the emergency room. Patient states he woke up around 1 AM and was experiencing chest discomfort. He states the discomfort was on the left side of his chest and he describes it as a burning sensation. He states the pain went into both of his shoulder blades. He denies feeling nauseated. He denies shortness of breath. Denies dizziness or lightheadedness. Patient states he went into the kitchen and drink some water and thought that might help his symptoms but he did not have any relief so he decided to come to the emergency room for further evaluation. Patient states the pain was not worse with deep inspiration or with movement. Patient denies any nicotine use. He denies drug use. He reports social alcohol use. He states that his maternal grandfather had a heart attack when he was in his 40s. EKG reveals sinus mechanism with no signs of acute ischemia Chest xray negative for acute process Laboratory data: WBC 3.8. Hemoglobin 15.0. Platelet count 174. D-dimer 0.44. Sodium 138. Potassium 4.5. BUN 19. Creatinine 1.02. Troponin 0.047. 0.228. 0.282. Current home cardiac medications include none Echocardiogram obtained revealed ejection fraction 60-65% with no significant wall motion abnormalities REVIEW OF SYSTEMS: At the time of my exam: CONSTITUTIONAL: Denies fever or chills. HEENT: Denies blurred vision, vision changes, or eye pain. Denies hemoptysis CARDIOVASCULAR: Denies chest pain. Denies orthopnea. Denies PND. Denies palpitations RESPIRATORY: Denies shortness of breath. GASTROINTESTINAL: Denies abdominal pain. Denies nausea or vomiting. HEMATOLOGIC: Denies bleeding disorders. GENITOURINARY: Denies any blood in urine. SKIN: Denies pruitis. Denies rash. PHYSICAL EXAM: VITAL SIGNS: Reviewed. GENERAL: Well-developed in no acute distress. HEENT: Head is normocephalic. Pupils are equal, round. Sclerae anicteric. Mucous membranes of the mouth are moist. Neck supple. No JVD or thyromegaly LUNGS: Respirations even and unlabored. Lungs essentially clear to auscultation bilaterally. HEART: Regular rate and rhythm. S1 and S2 heard. ABDOMEN: Soft. Nondistended. Nontender. EXTREMITIES: Normal range of motion. No clubbing or cyanosis. Peripheral pulse s intact. No lower extremity edema NEUROLOGIC: Awake and alert. Oriented x 3. ASSESSMENT: Non-ST elevated myocardial infarction Family history of premature coronary artery disease; patients maternal grandfather had TN in his 40s PLAN: Echo obtained and reviewed Continue telemetry monitoring Continue to monitor vital signs Patient to undergo cardiac catheterization today with Dr. Monge Further recommendations pending patient course Nurse practitioner note has been reviewed by physician. Signing provider agrees with the documented findings, assessment, and plan of care. Past Medical History Past Medical History: No Reported History Additional Past Medical History / Comment(s): MRSA right knee History of Any Multi-Drug Resistant Organisms: MRSA Date of last positivie culture/infection: 02/12/18 MDRO Source:: skin/right knee Past Surgical History: No Surgical Hx Reported Past Psychological History: No Psychological Hx Reported Smoking Status: Never smoker Past Alcohol Use History: Occasional Past Drug Use History: None Reported Medications and Allergies Home Medications Medication Instructions Recorded Confirmed Type Aspirin/Sod Bicarb/Citric Acid 1 tab PO DAILY PRN 09/26/20 09/26/20 History [Juanita-Ana Marai Original Tab Eff] Allergies Allergy/AdvReac Type Severity Reaction Status Date / Time No Known Allergies Allergy Verified 09/26/20 06:57 Physical Exam Vitals: Vital Signs Temp Pulse Resp BP Pulse Ox 09/26/20 11:22 82 18 162/89 100 09/26/20 11:14 98.3 F 71 16 162/89 100 09/26/20 10:38 98.3 F 67 16 137/86 100 09/26/20 07:22 98.1 F 58 L 16 129/81 100 09/26/20 06:00 58 L 18 126/82 98 09/26/20 02:24 97.8 F 67 18 154/88 100 Intake and Output 09/25/20 09/26/20 09/26/20 22:59 06:59 14:59 Intake Total 64.864 Balance 64.864 Intake: Intake, IV Titration 64.864 Amount Heparin Sod,Pork in 0.45% 64.864 NaCl 25,000 unit In 0.45 % NaCl 1 250ml.bag @ 11 UNITS/KG/HR 9.979 mls/hr IV .Q24H [facility] Rx#: [id number] Other: Weight 90.718 kg Results 09/26/20 02:49 09/26/20 02:49 Cardiac Enzymes 09/26/20 09/26/20 09/26/20 Range/Units 02:49 02:49 05:11 AST 56 (17-59) U/L Troponin I 0.047 H* 0.228 H* (0.000-0.034) ng/mL 09/26/20 Range/Units 09:18 AST (17-59) U/L Troponin I 0.282 H* (0.000-0.034) ng/mL Coagulation 09/26/20 Range/Units 02:49 PT 10.4 (9.0-12.0) sec APTT 24.3 (22.0-30.0) sec CBC 09/26/20 Range/Units 02:49 WBC 3.8 (3.8-10.6) k/uL RBC 4.82 (4.30-5.90) m/uL Hgb 15.0 (13.0-17.5) gm/dL Hct 43.7 (39.0-53.0) % Plt Count 171 (150-450) k/uL Comprehensive Metabolic Panel 09/26/20 Range/Units 02:49 Sodium 138 (137-145) mmol/L Potassium 4.5 (3.5-5.1) mmol/L Chloride 103 (98-107) mmol/L Carbon Dioxide 29 (22-30) mmol/L BUN 19 (9-20) mg/dL Creatinine 1.02 (0.66-1.25) mg/dL Glucose 106 H (74-99) mg/dL Calcium 9.3 (8.4-10.2) mg/dL AST 56 (17-59) U/L ALT 72 H (4-49) U/L Alkaline Phosphatase 94 (38-126) U/L Total Protein 7.7 (6.3-8.2) g/dL Albumin 4.8 (3.5-5.0) g/dL Current Medications Generic Name Dose Route Start Last Admin Trade Name Freq PRN Reason Stop Dose Admin Alprazolam 0.25 mg 09/26/20 08:37 Alprazolam 0.25 Mg Tab PO TID PRN Anxiety Alprazolam 0.25 mg 09/26/20 11:04 Alprazolam 0.25 Mg Tab PO Q6HR PRN Mild Anxiety Alprazolam 0.5 mg 09/26/20 11:04 Alprazolam 0.5 Mg Tab PO Q6HR PRN Moderate Anxiety Aspirin 81 mg 09/27/20 09:00 Aspirin 81 Mg PO DAILY MARYAM Famotidine 20 mg 09/26/20 09:00 09/26/20 09:20 Famotidine 20 Mg/2 Ml Vial IV 20 mg Q12HR MARYAM Administration Heparin Sodium (Porcine) 0 unit 09/26/20 04:04 Heparin Sodium,Porcine 5,000 Unit/Ml 1 Ml Vial IV PER PROTOCOL PRN Low PTT Protocol Heparin Sodium/Sodium Chloride 250 mls @ 9.979 mls/hr 09/26/20 04:15 09/26/20 11:13 25,000 unit/ Sodium Chloride IV 0 units/kg/hr .Q24H MARYAM 0 mls/hr Titration Protocol 11 UNITS/KG/HR Sodium Chloride 1,000 ml/ IV 1,000 mls @ 90.718 mls/hr 09/26/20 11:04 11:20 Solution IV 09/26/20 22:05 90.718 mls/hr .Q11H2M ONE Administration 1 ML/KG/HR Heparin Sodium (Porcine) 10, 1,001 mls @ 999 mls/hr 09/27/20 07:00 000 unit/ Sodium Chloride IRRIGATION 09/27/20 23:00 ONCE PRN INTRA-OP Heparin Sodium (Porcine) 2,500 250.5 mls @ 250 mls/hr 09/27/20 07:00 unit/ Sodium Chloride IRRIGATION 09/27/20 23:00 ONCE PRN INTRA-OP Nitroglycerin 0.4 mg 09/26/20 04:06 Nitroglycerin Sl Tabs 0.4 Mg Tab SUBLINGUAL Q5M PRN Chest Pain Nitroglycerin 0.4 mg 09/26/20 11:04 Nitroglycerin Sl Tabs 0.4 Mg Tab SUBLINGUAL Q5M PRN Chest Pain Intake and Output 09/25/20 09/26/20 09/26/20 22:59 06:59 14:59 Intake Total 64.864 Balance 64.864 Intake: Intake, IV Titration 64.864 Amount Heparin Sod,Pork in 0.45% 64.864 NaCl 25,000 unit In 0.45 % NaCl 1 250ml.bag @ 11 UNITS/KG/HR 9.979 mls/hr IV .Q24H [facility] Rx#: [id number] Other: Weight 90.718 kg 09/26/20 02:49 09/26/20 02:49
--- NOTE | 2020-09-26 11:49 | ECHOF ---
Referral Reason:abnormal trops, LV function MEASUREMENTS -------- HEIGHT: 188.0 cm WEIGHT: 90.7 kg BP: 129/81 RVIDd: 2.8 cm (< 3.3) IVSd: 1.2 cm (0.6 - 1.1) LVIDd: 4.9 cm (3.9 - 5.3) LVPWd: 1.0 cm (0.6 - 1.1) IVSs: 1.5 cm LVIDs: 3.2 cm LVPWs: 1.6 cm LA Diam: 3.3 cm (2.7 - 3.8) LAESV Index (A-L): 22.60 ml/m Ao Diam: 3.1 cm (2.0 - 3.7) AV Cusp: 2.4 cm (1.5 - 2.6) MV EXCURSION: 14.664 mm (> 18.000) MV EF SLOPE: 201 mm/s (70 - 150) EPSS: 0.4 cm MV E Herbert: 1.23 m/s MV DecT: 239 ms MV A Herbert: 0.66 m/s MV E/A Ratio: 1.87 FINDINGS -------- Sinus rhythm. This was a technically good study. The left ventricular size is normal. Left ventricular wall thickness is normal. Overall left vent ricular systolic function is normal with, an EF between 60 - 65 %. The right ventricle is normal in size. Normal LA size by volume 22+/-6 ml/m2. The right atrium is normal in size. Interatrial and interventricular septum intact. The aortic valve is trileaflet, and appears structurally normal. No aortic stenosis or regurgitation. The mitral valve is normal. The tricuspid valve appears structurally normal. There is no pulmonic regurgitation present. The aortic root, ascending aorta and aortic arch are normal. The inferior vena cava is mildly dilated. There is no pericardial effusion. CONCLUSIONS -------- 1. The left ventricular size is normal. 2. Left ventricular wall thickness is normal. 3. Overall left ventricular systolic function is normal with, an EF between 60 - 65 %. 4. The aortic valve is trileaflet, and appears structurally normal. No aortic stenosis or regurgitati on. 5. There is no pericardial effusion. CASEWORK SPECIALIST: Jil Jimenez RDCS
[2020-09-26] MEDS ORDERED: MIDAZOLAM 2 MG/2 ML VIAL IVP ONE (12:03)
[2020-09-26] MEDS ORDERED: LIDOCAINE 1% INJ 10MG/ML (20 ML MDV) SQ ONE (12:03)
[2020-09-26] MEDS ORDERED: IV FLUID CONTINUATION 900 ML IV ONE (12:05)
[2020-09-26] MEDS ORDERED: VERAPAMIL SYRINGE (5 MG/10 ML) INTRAARTER ONE ×2 (12:07→12:25)
[2020-09-26] MEDS ORDERED: HEPARIN SODIUM 1,000 UN/ML (10ML VL) ONE (12:08)
[2020-09-26] MEDS ORDERED: HEPARIN SODIUM 1,000 UN/ML (10ML VL) IV ONE (12:10)
[2020-09-26] MEDS ORDERED: IOPAMIDOL-370 100ML BTL INJ ONE (12:23)
[2020-09-26] MEDS: SODIUM CHLORIDE 0.9% 1,000 ML IV SCH (12:39)
[2020-09-26] MEDS ORDERED: RX INFO: IV CONTRAST WAS GIVEN 1 EACH MISC MISCELLANE PRN (13:24)
[2020-09-26] MEDS ORDERED: CLOPIDOGREL 75 MG TAB ONE (14:33)
--- NOTE | 2020-09-26 15:05 | CC ---
CARDIAC CATHETERIZATION REPORT DATE OF SERVICE: 09/26/2020 PROCEDURE: Left heart catheterization and coronary angiography and aortography. PERFORMED BY: Dr. Cheikh Monge. Moderate conscious sedation time was 27 minutes. Patient was administered Versed. Oxygen saturation, hemodynamics and EKG were monitored closely. CLINICAL INFORMATION: Mr. Miguel Angel Wiley is a 34-year-old gentleman without significant past medical history. He works hard as a boiler operator. He came in with episode of chest pain that woke him up at 1:30. His troponin went up from 0.04 to 0.2 and then a 0.28. EKG did not reveal significant changes. Echo was unremarkable. D-dimer was unremarkable. Given the troponin rise and chest pain, I recommended coronary angiography after due discussion regarding risks, benefits, and options. I also spoke to his by phone. PROCEDURE NOTE: Under local anesthesia and strict aseptic precautions, a 6-Stateless introducer was placed in the right radial artery. Using a JL3.5 and JR4 catheters, I performed coronary angiography and using the same right catheter I checked LV pressures but did not perform LV gram. I then used a pigtail catheter to perform an aortogram in the ICELANDIC projection to look up for any aortic regurgitation or aortic dissection. Following this, the sheath was taken out and TR band applied as per protocol. The patient received 2000 units of heparin. He was already on heparin drip just before coming to the cath laboratory technician. The results were discussed with the patient in person and I also spoke to his and his [id number]. We will continue medical therapy. It appears that we are dealing with a myocardial infarction without obstructive coronary artery disease. We will repeat an echocardiogram, treat him with aspirin and Plavix for now. CARDIAC CATHETERIZATION FINDINGS: The left ventricular end-diastolic pressure was about 4 mmHg. No gradient across aortic valve. CORONARY ANGIOGRAPHY FINDINGS: RIGHT CORONARY ARTERY: Large dominant vessel free of significant disease. Distally gives off a large PLV, small PDA. Has minor irregularities, no significant disease. LEFT MAIN CORONARY ARTERY: Short patent disease-free vessel that bifurcates into LAD and circumflex. LEFT ANTERIOR DESCENDING CORONARY ARTERY: Good caliber vessel gives off a large diagonal branch proximally, several septal branches, runs over the apex and curves over the apex to supply the inferoapical portion of left ventricle. Large distribution of LAD, free of significant disease. Diagonal has no significant disease. LEFT POSTERIOR CIRCUMFLEX CORONARY ARTERY: Nondominant vessel gives off a single obtuse marginal that runs laterally and a small AV groove branch which appears to have minor irregularities. No significant disease in the nondominant circumflex system. LEFT VENTRICULOGRAM: Left ventriculogram was not performed. AORTOGRAM: This was performed in ICELANDIC projection. The aortic root is normal. There is no aortic insufficiency. There is no evidence of any dissection in the ascending thoracic or in the proximal portion of the descending thoracic aorta. FINAL IMPRESSION: This patient has normal filling pressures. No gradient. No significant obstructive coronary artery disease and normal aortogram. He has a right dominant system. RECOMMENDATIONS: Findings were discussed with the patient, and his father in law. I am recommending that we will pursue medical therapy for now with aspirin, Plavix and obtain a repeat echocardiogram tomorrow and based on clinical course, I will make further recommendations. Prognosis appears fair. MMODL / IJN: [id number] /
[2020-09-26] MEDS ORDERED: METOPROLOL TARTRATE 12.5 MG TAB PO SCH (15:15)
[2020-09-27 00:29] VITALS: RESP 18
[2020-09-27] MEDS: SODIUM CHLORIDE 0.9% 1,000 ML IV SCH (05:52)
[2020-09-27 06:02] LABS: Basophils % (A) 1 %; Eosinophils % (A) 1 %; HCT 42.8 % (39.0-53.0); HGB 15.1 gm/dL (13.0-17.5); Lymphocytes # (A) 1.3 k/uL (1.0-4.8); Lymphocytes % (A) 32 %; MCHC 35.3 g/dL (31.0-37.0); MCV 90.7 fL (80.0-100.0); Mean Platelet Volume 8.1; Monocytes # (A) 0.3 k/uL (0-1.0); Monocytes % (A) 8 %; Neutrophils # (A) 2.3 k/uL (1.3-7.7); Neutrophils % (A) 56 %; Platelet Count 200 k/uL (150-450); RBC 4.71 m/uL (4.30-5.90); RDW 12.8 % (11.5-15.5); WBC 4.1 k/uL (3.8-10.6)
[2020-09-27 06:13] LABS: African American GFR (CKD) >90 (>60 ml/min/1.73 sqM); Anion Gap 9 mmol/L; Blood Urea Nitrogen 14 mg/dL (9-20); Calcium 9.5 mg/dL (8.4-10.2); Carbon Dioxide 27 mmol/L (22-30); Chloride 104 mmol/L (98-107); Glucose 140 mg/dL (74-99); Non-African American GFR(CKD) >90 (>60 ml/min/1.73 sqM); Potassium 4.3 mmol/L (3.5-5.1); Sodium 140 mmol/L (137-145)
[2020-09-27 06:33] LABS: Cholesterol 181 mg/dL (<200); HDL Cholesterol 45 mg/dL (40-60); LDL Cholesterol,Calculated 115 mg/dL (0-99); Triglycerides 104 mg/dL (<150)
[2020-09-27] MEDS ORDERED: HEPARIN SODIUM,PORCINE 10,000 UNIT in SODIUM CHLORIDE 0.9% 1,000 ML IRRIGATION PRN (07:00)
[2020-09-27] MEDS ORDERED: HEPARIN SODIUM,PORCINE 2,500 UNIT in SODIUM CHLORIDE 0.9% 250 ML IRRIGATION PRN (07:00)
[2020-09-27] MEDS ORDERED: ASPIRIN 325 MG TAB PO SCH (09:00)
[2020-09-27] MEDS ORDERED: CLOPIDOGREL 75 MG TAB PO SCH (09:00)
[2020-09-27] MEDS ORDERED: ASPIRIN 81 MG PO SCH (09:00)
--- NOTE | 2020-09-27 10:14 | ECHOF ---
Referral Reason:LVEF MEASUREMENTS -------- HEIGHT: 157.5 cm WEIGHT: 90.7 kg BP: IVSd: 1.0 cm (0.6 - 1.1) LVIDd: 4.3 cm (3.9 - 5.3) LVPWd: 1.2 cm (0.6 - 1.1) IVSs: 1.8 cm LVIDs: 2.9 cm LVPWs: 1.8 cm LAESV Index (A-L): 21.70 ml/m Ao Diam: 3.2 cm (2.0 - 3.7) AV Cusp: 2.3 cm (1.5 - 2.6) LA Diam: 2.6 cm (2.7 - 3.8) MV EXCURSION: 15.965 mm (> 18.000) MV EF SLOPE: 143 mm/s (70 - 150) EPSS: 0.8 cm MV E Herbert: 1.41 m/s MV DecT: 274 ms MV A Herbert: 0.48 m/s MV E/A Ratio: 2.93 RAP: 5.00 mmHg RVSP: 21.28 mmHg FINDINGS -------- This was a technically good study. The left ventricular size is normal. Left ventricular wall thickness is normal. Overall left vent ricular systolic function is normal with, an EF between 60 - 65 %. The diastolic filling pattern is normal for the age of the patient 9.58. The right ventricle is normal in size. The left atrial size is normal. Normal LA size by volume 22+/-6 ml/m2. The right atrial size is normal. Interatrial and interventricular septum intact. The aortic valve is trileaflet and appears structurally normal. The mitral valve is normal. There is trace mitral regurgitation. The tricuspid valve appears structurally normal. Trace tricuspid regurgitation present. Right jessica tricular systolic pressure is normal at < 35 mmHg. There is no pulmonic regurgitation present. The aortic root size is normal. Normal inferior vena cava with normal inspiratory collapse consistent with estimated right atrial pre ssure of 5 mmHg. There is no pericardial effusion. CONCLUSIONS -------- 1. The left ventricular size is normal. 2. Left ventricular wall thickness is normal. 3. Overall left ventricular systolic function is normal with, an EF between 60 - 65 %. 4. The diastolic filling pattern is normal for the age of the patient 9.58 5. There is trace mitral regurgitation. 6. Trace tricuspid regurgitation present. 7. There is no pericardial effusion. METAL TRIM ERECTOR: Liliana Wade RDCS
[2020-09-27 12:27] VITALS: BP 114/83; PULSE 66
--- NOTE | 2020-09-27 13:33 | P.PN ---
Subjective Progress Note Date: 09/27/20 HISTORY OF PRESENT ILLNESS: This is a 34-year-old male with no significant past medical history. Patient does not follow with a forex trader. We have been asked to see the patient in consultation for abnormal troponins. Patient examined at the bedside in the emergency room. Patient states he woke up around 1 AM and was experiencing chest discomfort. He states the discomfort was on the left side of his chest and he describes it as a burning sensation. He states the pain went into both of his shoulder blades. He denies feeling nauseated. He denies shortness of breath. Denies dizziness or lightheadedness. Patient states he went into the kitchen and drink some water and thought that might help his symptoms but he did not have any relief so he decided to come to the emergency room for further evaluation. Patient states the pain was not worse with deep inspiration or with movement. Patient denies any nicotine use. He denies drug use. He reports social alcohol use. He states that his maternal grandfather had a heart attack when he was in his 40s. EKG reveals sinus mechanism with no signs of acute ischemia Chest xray negative for acute process Laboratory data: WBC 3.8. Hemoglobin 15.0. Platelet count 174. D-dimer 0.44. Sodium 138. Potassium 4.5. BUN 19. Creatinine 1.02. Troponin 0.047. 0.228. 0.282. Current home cardiac medications include none Echocardiogram obtained revealed ejection fraction 60-65% with no significant wall motion abnormalities 09/27/2020 Patient underwent cardiac cath yesterday with no significant obstructive coronary artery disease. Patient examined this point bedside. He denies chest pain or pressure. He denies shortness of breath. Vital signs are stable. PHYSICAL EXAM: VITAL SIGNS: Reviewed. GENERAL: Well-developed in no acute distress. HEENT: Head is normocephalic. Pupils are equal, round. Sclerae anicteric. Mucous membranes of the mouth are moist. Neck supple. No JVD or thyromegaly LUNGS: Respirations even and unlabored. Lungs essentially clear to auscultation bilaterally. HEART: Regular rate and rhythm. S1 and S2 heard. ABDOMEN: Soft. Nondistended. Nontender. EXTREMITIES: Normal range of motion. No clubbing or cyanosis. Peripheral pulses intact. No lower extremity edema. Right radial cath site with pulse present. NEUROLOGIC: Awake and alert. Oriented x 3. ASSESSMENT: Non-ST elevated myocardial infarction, status post cardiac cath revealing no significant obstructive CAD Family history of premature coronary artery disease; patients maternal grandfather had MT in his 40s PLAN: Continue dual antiplatelet therapy with aspirin and Plavix Continue metoprolol 12.5 mg daily Continue Lipitor 40 mg daily Patient is stable for discharge home today from a cardiac standpoint. He is to follow up outpatient with Dr. Monge Nurse practitioner note has been reviewed by physician. Signing provider agrees with the documented findings, assessment, and plan of care. Objective - Vital Signs Vital signs: Vital Signs Temp 98.3 F 09/26/20 11:14 Pulse 66 09/27/20 09:00 Resp 18 09/27/20 09:00 BP 114/83 09/27/20 09:00 Pulse Ox 100 09/27/20 09:00 Intake & Output 09/26/20 09/27/20 09/27/20 18:59 06:59 18:59 Intake Total 414.864 660 480 Balance 414.864 660 480 Weight 90.718 kg 92 kg Intake: IV 350 Intake, IV Titration 64.864 0 Amount Heparin Sod,Pork in 0.45% 64.864 0 NaCl 25,000 unit In 0.45 % NaCl 1 250ml.bag @ 11 UNITS/KG/HR 9.979 mls/hr IV .Q24H MARYAM Rx#: [id number] Sodium Chloride 0.9% 1, 0 000 ml @ 75 mls/hr IV . [id number] MARYAM Rx#:[id number] Oral 660 480 Other: # Voids 4 # Bowel Movements 1 - Labs CBC & Chem 7: 09/27/20 05:52 09/27/20 05:52 Labs: Abnormal Lab Results - Last 24 Hours (Table) 09/27/20 09/27/20 09/27/20 Range/Units 05:52 05:52 05:52 Glucose 140 H (74-99) mg/dL Troponin I 0.122 H* (0.000-0.034) ng/mL LDL Cholesterol, Calc 115 H (0-99) mg/dL
[2020-09-27] MEDS ORDERED: ATORVASTATIN 40 MG TAB PO SCH (21:00)
--- NOTE | 2020-09-28 00:24 | P.DS ---
Providers Date of admission: 09/26/20 04:05 Attending physician: Clau Giles Consults: 09/26/20 04:06 Consult Physician Routine Consulting Provider: Harriet Horta Consult Reason/Comments: Acute coronary syndrome Do you want consulting provider notified?: Yes Primary care physician: Renato Diaz Hospital Course: Diagnoses: Acute non-STEMI, cardiac cath showing non-obstructive coronary artery, patient is cleared for discharge by sulfide head operator on conservative management Mild asymptomatic bradycardia family history of premature cardiac disease Hospital course: This is a pleasant 54 years old male with no significant past medical history. Was admitted with one day of heartburn and chest pain, Troponin is elevated 0.04 and 0.22 on admission. Patient has been evaluated by sulfide head operator, he underwent cardiac cath showing nonobstructive coronary artery so sulfide head operator recommended no stent placement and to continue with conservative management, aspirin, Plavix, metoprolol and statin were added by sulfide head operator and prescription is provided for the patient. Risks including but not limited to intracranial hemorrhage are explained for the patient and he agrees to continue with this medication. On the day of discharge patient is back to his normal state and his chest pain is completely resolved. No other symptoms Problems and management plan were discussed with the patient and he verbalized understanding and acceptance Patient was found stable and can be discharged home however he needs follow-up as an outpatient. Patient was instructed to follow up with PCP Dr. Diaz within one week and patient agrees. Also patient was instructed to follow up with Dr. Monge sulfide head operator in 1 week and he agrees to call and make appointment Physical exam Gen: patient is a AAOx3, no distress CVS: S1-S2, RRR, no murmur Lungs: B/L CTA, no wheezing Abdomen: soft, no distention, no tenderness, positive bowel sounds Extremity: no leg edema or induration Time spent more than 35 minutes Patient Condition at Discharge: Fair Plan - Discharge Summary Discharge Rx Participant: No New Discharge Prescriptions: New Aspirin 81 mg PO DAILY #30 chew Metoprolol Tartrate [Lopressor] 12.5 mg PO DAILY #30 tab Nitroglycerin Sl Tabs [Nitrostat] 0.4 mg SUBLINGUAL Q5M PRN #20 tab PRN Reason: Chest Pain Clopidogrel [Plavix] 75 mg PO DAILY #30 tab Atorvastatin Calcium [Lipitor] 40 mg PO HS #90 tablet Continue Aspirin/Sod Bicarb/Citric Acid [Juanita[place] Original Tab Eff] 1 tab PO DAILY PRN PRN Reason: Cold Symptoms Discharge Medication List Aspirin/Sod Bicarb/Citric Acid [[place] Original Tab Eff] 1 tab PO DAILY PRN 09/26/20 [History] Aspirin 81 mg PO DAILY #30 chew 09/27/20 [Rx] Atorvastatin Calcium [Lipitor] 40 mg PO HS #90 tablet 09/27/20 [Rx] Clopidogrel [Plavix] 75 mg PO DAILY #30 tab 09/27/20 [Rx] Metoprolol Tartrate [Lopressor] 12.5 mg PO DAILY #30 tab 09/27/20 [Rx] Nitroglycerin Sl Tabs [Nitrostat] 0.4 mg SUBLINGUAL Q5M PRN #20 tab 09/27/20 [Rx] Follow up Appointment(s)/Referral(s): Pineda Monge MD [STAFF PHYSICIAN] - 10/03/20 9:00 am (appt for saturday) Renato Diaz MD [Primary Care Provider] - 10/03/20 3:00 pm (SATURDAY) Patient Instructions/Handouts: Clopidogrel (By mouth), Chest Pain (ED), Heart Healthy Diet (DC), After Radial Heart Catheterization (GEN) Activity/Diet/Wound Care/Special Instructions: heart healthy diet activity is restricted till you see your doctor Discharge Disposition: HOME SELF-CARE
== END 2020-09-27 12:52 | disposition home or self-care (01) ==
LOC: EC 02:21 → 3SCARD 04:05
PROVIDERS: ADMIT Hospitalist; ATTEND Hospitalist
DX: I21.4 Non-ST elevation (NSTEMI) myocardial infarction (principal); R00.1 Bradycardia, unspecified; I24.9 Acute ischemic heart disease, unspecified; Q25.0 Patent ductus arteriosus; Z79.02 Long term (current) use of antithrombotics/antiplatelets; Z16.24 Resistance to multiple antibiotics; Z79.82 Long term (current) use of aspirin; Z82.49 Family history of ischemic heart disease and other diseases of the circulatory system; M85.80 Other specified disorders of bone density and structure, unspecified site; Z20.822 Contact with and (suspected) exposure to COVID-19
CPT/HCPCS: 93005 ×2; 96376; 96365; 96366; 99285; 36415; 93306 ×2; 93458; 93567; 85379; 80061; 80053; 80048; 83735; 84484 ×2; 85025 ×2; 85610; 85730; 87635; 71046; G0378 ×2; C1769; C1894; J2250; J1644 ×3; J2001; Q9967

== ENCOUNTER → 2020-10-05 | Outpatient (CLI) | payer OTHER ==
[2020-10-06 14:43] LABS: APTT 38 Sec(s) (<43); Dilute Russell Viper Venom 41 Sec(s) (<44)
== END | disposition home or self-care (01) ==
LOC: LABWHC1 10:33
PROVIDERS: ATTEND Family Medicine
DX: M35.9 Systemic involvement of connective tissue, unspecified (principal)
CPT/HCPCS: 36415; 85613; 85730